=== PATIENT | female | born 1960 | race Asian ===

== ENCOUNTER 2016-08-07 09:47 | Emergency (ER) | payer BC ==
--- NOTE | 2016-08-07 11:11 | EDDOCDS ---
Physician Documentation [facility] Name: Stefani Estrada Age: 56 yrs Sex: Female : 1960 Arrival Date: 08/07/2016 Time: 09:47 Bed TR1 Private MD: NO PRIMARY PHYSICIAN, . Disposition: 08/07/16 10:53 Discharged to Home/Self Care. Impression: Nondisplaced fracture of proximal phalanx of left great toe. - Condition is Stable. - Discharge Instructions: Toe Fracture, [id number]. - Medication Reconciliation, Local Pharmacy Hours form. - Follow up: Orthopaedics, [facility]; When: Call to arrange an appointment; Reason: Further diagnostic work-up, Recheck today's complaints, Continuance of care. - Problem is new. - Symptoms are unchanged. Historical: - Allergies: no known allergies; - Home Meds: 1. none - PMHx: none; - PSHx: none; - Social history: Smoking status: Patient states was never smoker of tobacco. No barriers to communication noted, The patient speaks fluent Dominican. - : The pt / caregiver states he / she is not on anticoagulants. Home medication list is obtained from family members. - Exposure Risk Screening:: None identified. Vital Signs: 08/07 09:50 BP 143 / 83; Pulse 70; Resp 18; Temp 97.5; Pulse Ox 100% ; Weight 45.36 kg / 100 lbs; elp Height 5 ft. 0 in. (152.40 cm); 09:50 Body Mass Index 19.53 (45.36 kg, 152.40 cm) elp MDM: 10:02 Foot, Complete Ordered. EDMS 10:41 Financial registration complete. lg 10:47 [facility] [place]. Nursing Order ordered. [facility] 10:47 [facility] Payment Agreement was scanned into [employer] and attached to record. lg Signatures: Dispatcher [employer] EDMS Tanya Weber, Jeovany Reg lg Shy Gillis, Bobo Vines RN, PA PA btw Diana Maravilla RN RN ms18 The chart was reviewed and I authenticate all verbal orders and agree with the evaluation and treatment provided.Attachments: 10:47 [facility] [place] Agreement lg MTDD
--- NOTE | 2016-08-07 11:11 | EDDOCDS ---
Nurse's Notes [facility] Name: Stefani Estrada Age: 56 yrs Sex: Female : 1960 Arrival Date: 08/07/2016 Time: 09:47 Bed TR1 Private MD: NO PRIMARY PHYSICIAN, . Diagnosis: Nondisplaced fracture of proximal phalanx of left great toe Presentation: 08/07 09:53 Presenting complaint: states: that his injured her L foot approx 5 days ms18 ago and can't move her great toe, some bruising noted. Adult Sepsis Screening: The patient does not have new or worsening altered mentation. Patient's respiratory rate is less than 22. Systolic blood pressure is greater than 100. Patient has a qSOFA score of 0- Negative Sepsis Screen. Suicide/Homicide risk assessment- the patient denies having any suicidal and/or homicidal ideations and does not present with any other emotional, behavioral or mental health complaints. Status: Patient is not a automotive service advisor or dependent. Transition of care: patient was not received from another setting of care. 09:53 Acuity: KAMERON Level 4 ms18 09:53 Method Of Arrival: Walkin/Carried/Asstd ms18 Triage Assessment: 09:55 General: Appears in no apparent distress, comfortable, Behavior is appropriate for age, ms18 cooperative. Pain: Location: left foot Pain currently is 8 out of 10 on a pain scale. HIV screening NA for this visit Offered previously. Neurological: Level of Consciousness is awake, alert, obeys commands. Respiratory: No deficits noted. Derm: Skin is pink, warm & dry. Bruising that is yellow, on left first toe. Musculoskeletal: Circulation, motion, and sensation intact Range of motion intact in all extremities. No deformity noted. Historical: - Allergies: no known allergies; - Home Meds: 1. none - PMHx: none; - PSHx: none; - Social history: Smoking status: Patient states was never smoker of tobacco. No barriers to communication noted, The patient speaks fluent Pashto. - : The pt / caregiver states he / she is not on anticoagulants. Home medication list is obtained from family members. - Exposure Risk Screening:: None identified. Screenin:57 Screening information is obtained from family members. Fall risk: No risks identified. jjr Assistance ADL's: requires no assistance with activities of daily living. Abuse/DV Screen: The patient / caregiver reports he/she is: not in a situation that causes fear, pain or injury. Nutritional screening: No deficits noted. Advance Directives: There is no active DNR order. home support is adequate. Assessment: 10:56 General: Appears in no apparent distress. Musculoskeletal: Capillary refill < 3 seconds jjr in left toes Reports pain in left first toe and medial aspect of left toes. Vital Signs: 09:50 BP 143 / 83; Pulse 70; Resp 18; Temp 97.5; Pulse Ox 100% ; Weight 45.36 kg; Height 5 elp ft. 0 in. (152.40 cm); 09:50 Body Mass Index 19.53 (45.36 kg, 152.40 cm) [facility] Vitals: 09:50 Log In Time: August 07, 2016 at 09:48. [facility] ED Course: 09:49 Patient visited by Maris Freedman PCA. elp 09:49 NO PRIMARY PHYSICIAN, . is Private Physician. elp 09:49 Patient moved to Waiting elp 09:50 Patient visited by Maris Freedman PCA. elp 09:50 Patient moved to Pre RCE elp 09:55 Triage Initiated ms18 10:32 [facility] btw 10:32 Kaleb Aleman MD is Attending Physician. btw 10:32 Patient moved to Triage 1 jjr 10:40 Patient visited by Bobo Mckinley PA. btw 10:47 [facility] Payment Agreement was scanned into [employer] and attached to record. lg 10:[facility] btw 10:57 The patient / caregiver is instructed regarding the plan of care and ED course. jjr 10:57 No IV's were initiated during this patient's visit. No procedures done that require jjr assistance. 11:10 Patient moved to TR1 jjr Order Results: There are currently no results for this order. Outcome: 10:53 Discharge ordered by Provider. btw 11:10 Discharge Assessment: patient administered narcotics - no. The following High Risk jjr Discharge criteria are identified: None. Discharged to home ambulatory, with significant other. Condition: stable. Discharge instructions given to significant other, Instructed on discharge instructions, follow up and referral plans. Demonstrated understanding of instructions. No special radiology studies were completed. Property sent home with patient. 11:10 Patient left the ED. lethajr Signatures: Tanya Weber Reg Reg lg Raymond, Jessica, RN RN Bobo Henry PA PA btw Patchen, Erin, PCA PCA elp Smith, Mallory,RN RN ms18 MTDD
--- NOTE | 2016-08-07 12:13 | REP ---
Left foot series: Four views. History: Trauma. Findings: Four views of the left foot demonstrate a nondisplaced fracture of the proximal phalanx of the left foot visible on oblique radiograph. There is associated swelling. No other fracture is seen. There is diffuse osteopenia. Achilles and plantar calcaneal spurring is noted. Impression: Oblique nondisplaced fracture of the proximal phalanx of the great toe with associated swelling. Diffuse osteoporosis. Signed by Damon Whyte MD 08/07/2016 07:24 P
--- NOTE | 2016-08-09 12:11 | EDDOCDS ---
Physician Documentation [facility] Name: Stefani Estrada Age: 56 yrs Sex: Female : 1960 Arrival Date: 08/07/2016 Time: 09:47 Bed TR1 Private MD: NO PRIMARY PHYSICIAN, . Disposition: 08/07/16 10:53 Discharged to Home/Self Care. Impression: Nondisplaced fracture of proximal phalanx of left great toe. - Condition is Stable. - Discharge Instructions: Toe Fracture, [id number]. - Medication Reconciliation, Local Pharmacy Hours form. - Follow up: Orthopaedics, [facility]; When: Call to arrange an appointment; Reason: Further diagnostic work-up, Recheck today's complaints, Continuance of care. - Problem is new. - Symptoms are unchanged. Historical: - Allergies: no known allergies; - Home Meds: 1. none - PMHx: none; - PSHx: none; - Social history: Smoking status: Patient states was never smoker of tobacco. No barriers to communication noted, The patient speaks fluent Hungarian. - : The pt / caregiver states he / she is not on anticoagulants. Home medication list is obtained from family members. - Exposure Risk Screening:: None identified. Vital Signs: 08/07 09:50 BP 143 / 83; Pulse 70; Resp 18; Temp 97.5; Pulse Ox 100% ; Weight 45.36 kg / 100 lbs; elp Height 5 ft. 0 in. (152.40 cm); 09:50 Body Mass Index 19.53 (45.36 kg, 152.40 cm) elp MDM: 10:02 Foot, Complete Ordered. EDMS 10:41 Financial registration complete. lg 10:47 [facility] [place]. Nursing Order ordered. btw 10:47 [facility] Payment Agreement was scanned into [employer] and attached to record. lg 15:04 T-Sheet-- Draft Copy was scanned into [employer] and attached to record. gb Signatures: Dispatcher [employer] EDMS Isela Chen, Reg Reg gb Tanya Weber, Reg Reg lg Shy Gillis, RN RN Bobo Henry PA PA btw Diana MaravillaRN RN ms18 The chart was reviewed and I authenticate all verbal orders and agree with the evaluation and treatment provided.Attachments: 10:47 [facility] Payment Agreement lg 15:04 T-Sheet-- Draft Copy gb Chart Complete MTDD
--- NOTE | 2016-08-09 12:11 | EDDOCDS ---
Physician Documentation [facility] Name: Stefani Estrada Age: 56 yrs Sex: Female : 1960 Arrival Date: 08/07/2016 Time: 09:47 Bed TR1 Private MD: NO PRIMARY PHYSICIAN, . Disposition: 08/07/16 10:53 Discharged to Home/Self Care. Impression: Nondisplaced fracture of proximal phalanx of left great toe. - Condition is Stable. - Discharge Instructions: Toe Fracture, [id number]. - Medication Reconciliation, Local Pharmacy Hours form. - Follow up: Orthopaedics, [facility]; When: Call to arrange an appointment; Reason: Further diagnostic work-up, Recheck today's complaints, Continuance of care. - Problem is new. - Symptoms are unchanged. Historical: - Allergies: no known allergies; - Home Meds: 1. none - PMHx: none; - PSHx: none; - Social history: Smoking status: Patient states was never smoker of tobacco. No barriers to communication noted, The patient speaks fluent [place] Islander. - : The pt / caregiver states he / she is not on anticoagulants. Home medication list is obtained from family members. - Exposure Risk Screening:: None identified. Vital Signs: 08/07 09:50 BP 143 / 83; Pulse 70; Resp 18; Temp 97.5; Pulse Ox 100% ; Weight 45.36 kg / 100 lbs; elp Height 5 ft. 0 in. (152.40 cm); 09:50 Body Mass Index 19.53 (45.36 kg, 152.40 cm) elp MDM: 10:02 Foot, Complete Ordered. EDMS 10:41 Financial registration complete. lg 10:47 [facility] [place]. Nursing Order ordered. btw 10:47 [facility] Payment Agreement was scanned into [employer] and attached to record. lg 15:04 T-Sheet-- Draft Copy was scanned into [employer] and attached to record. gb Signatures: Dispatcher [employer] EDMS Isela Chen, Reg Reg gb Tanya Weber, Reg Reg lg Shy Gillis, RN RN Bobo Henry PA PA btw Diana MaravillaRN RN ms18 The chart was reviewed and I authenticate all verbal orders and agree with the evaluation and treatment provided.Attachments: 10:47 [facility] Payment Agreement lg 15:04 T-Sheet-- Draft Copy gb Chart Complete MTDD
--- NOTE | 2016-08-09 12:11 | EDDOCDS ---
Nurse's Notes [facility] Name: Stefani Estrada Age: 56 yrs Sex: Female : 1960 Arrival Date: 08/07/2016 Time: 09:47 Bed TR1 Private MD: NO PRIMARY PHYSICIAN, . Diagnosis: Nondisplaced fracture of proximal phalanx of left great toe Presentation: 08/07 09:53 Presenting complaint: states: that his injured her L foot approx 5 days ms18 ago and can't move her great toe, some bruising noted. Adult Sepsis Screening: The patient does not have new or worsening altered mentation. Patient's respiratory rate is less than 22. Systolic blood pressure is greater than 100. Patient has a qSOFA score of 0- Negative Sepsis Screen. Suicide/Homicide risk assessment- the patient denies having any suicidal and/or homicidal ideations and does not present with any other emotional, behavioral or mental health complaints. Status: Patient is not a customer service sales consultant or dependent. Transition of care: patient was not received from another setting of care. 09:53 Acuity: KAMERON Level 4 ms18 09:53 Method Of Arrival: Walkin/Carried/Asstd ms18 Triage Assessment: 09:55 General: Appears in no apparent distress, comfortable, Behavior is appropriate for age, ms18 cooperative. Pain: Location: left foot Pain currently is 8 out of 10 on a pain scale. HIV screening NA for this visit Offered previously. Neurological: Level of Consciousness is awake, alert, obeys commands. Respiratory: No deficits noted. Derm: Skin is pink, warm & dry. Bruising that is yellow, on left first toe. Musculoskeletal: Circulation, motion, and sensation intact Range of motion intact in all extremities. No deformity noted. Historical: - Allergies: no known allergies; - Home Meds: 1. none - PMHx: none; - PSHx: none; - Social history: Smoking status: Patient states was never smoker of tobacco. No barriers to communication noted, The patient speaks fluent German. - : The pt / caregiver states he / she is not on anticoagulants. Home medication list is obtained from family members. - Exposure Risk Screening:: None identified. Screenin:57 Screening information is obtained from family members. Fall risk: No risks identified. jjr Assistance ADL's: requires no assistance with activities of daily living. Abuse/DV Screen: The patient / caregiver reports he/she is: not in a situation that causes fear, pain or injury. Nutritional screening: No deficits noted. Advance Directives: There is no active DNR order. home support is adequate. Assessment: 10:56 General: Appears in no apparent distress. Musculoskeletal: Capillary refill < 3 seconds jjr in left toes Reports pain in left first toe and medial aspect of left toes. Vital Signs: 09:50 BP 143 / 83; Pulse 70; Resp 18; Temp 97.5; Pulse Ox 100% ; Weight 45.36 kg; Height 5 elp ft. 0 in. (152.40 cm); 09:50 Body Mass Index 19.53 (45.36 kg, 152.40 cm) [facility] Vitals: 09:50 Log In Time: August 07, 2016 at 09:48. [facility] ED Course: 09:49 Patient visited by Maris Freedman PCA. elp 09:49 NO PRIMARY PHYSICIAN, . is Private Physician. elp 09:49 Patient moved to Waiting elp 09:50 Patient visited by Maris Freedman PCA. elp 09:50 Patient moved to Pre RCE elp 09:55 Triage Initiated ms18 10:32 [facility]. btw 10:32 Kaleb Aleman MD is Attending Physician. btw 10:32 Patient moved to Triage 1 jjr 10:40 Patient visited by Bobo Mckinley PA. btw 10:47 [facility] Payment Agreement was scanned into [employer] and attached to record. lg 10:52 [facility] btw 10:57 The patient / caregiver is instructed regarding the plan of care and ED course. jjr 10:57 No IV's were initiated during this patient's visit. No procedures done that require jjr assistance. 11:10 Patient moved to TR1 jjr 12:36 Foot, Complete Returned. EDMS 15:04 T-Sheet-- Draft Copy was scanned into [employer] and attached to record. gb Order Results: Radiology Order: Foot, Complete Test: Foot, Complete REASON FOR EXAMINATION: Trauma; Left foot series: Four views.; ; History: Trauma.; ; Findings: Four views of the left foot demonstrate a nondisplaced fracture of the; proximal phalanx of the left foot visible on oblique radiograph. There is; associated swelling. No other fracture is seen. There is diffuse osteopenia.; Achilles and plantar calcaneal spurring is noted.; ; Impression:; ; Oblique nondisplaced fracture of the proximal phalanx of the great toe with; associated swelling. Diffuse osteoporosis.; ; ; Signed by; Damon Whyte MD 08/07/2016 07:24 P; Outcome: 10:53 Discharge ordered by Provider. btw 11:10 Discharge Assessment: patient administered narcotics - no. The following High Risk jjr Discharge criteria are identified: None. Discharged to home ambulatory, with significant other. Condition: stable. Discharge instructions given to significant other, Instructed on discharge instructions, follow up and referral plans. Demonstrated understanding of instructions. No special radiology studies were completed. Property sent home with patient. 11:10 Patient left the ED. jjr Signatures: Dispatcher [employer] EDMS Isela Chen, Reg Reg gb Tanya Weber, Reg Reg lg Shy Gillis, RN RN jjr Bobo Mckinley PA PA Maris Millard, WIRELESS WATCHER WIRELESS WATCHER Diana Nettles,RN RN ms18 Chart Complete MTDD
== END 2016-08-07 11:10 | disposition home or self-care (01) ==
LOC: M ED 09:47
DX: S92.415A Nondisplaced fracture of proximal phalanx of left great toe, initial encounter for closed fracture (principal); W22.8XXA Striking against or struck by other objects, initial encounter; Y92.019 Unspecified place in single-family (private) house as the place of occurrence of the external cause; Y93.89 Activity, other specified; Y99.8 Other external cause status

== ENCOUNTER → 2016-08-21 | Outpatient (CLI) | payer BC | LOC: M WHC 14:47 | DX: M81.0 Age-related osteoporosis without current pathological fracture (principal); Z53.8 Procedure and treatment not carried out for other reasons ==

== ENCOUNTER → 2016-11-24 | Outpatient (CLI) | payer BC ==
--- NOTE | 2016-11-26 09:00 | DEXA ---
AP SPINE L1 - L4 0.921 -2.2 -0.7 LT FEMUR TOTAL 0.787 -1.7 -0.6 RT FEMUR TOTAL 0.787 -1.8 -0.6 TOTAL BODY TOTAL OTHER DUAL FEMUR FRAX* ASSESSMENT Risk factors: Adult fracture. 10 year probability of fracture Major osteoporotic fracture 9.8 % Hip fracture 2.2 % COMMENTS: There is low bone density of the spine. There is low bone density of the right hip. There is osteoporosis of the left hip. FOLLOW-UP: Recommendation for the next bone density exam: 2 years. TRIPP
== END ==
LOC: M WHC 12:21
PROVIDERS: ATTEND Internal Medicine
DX: M81.0 Age-related osteoporosis without current pathological fracture (principal)

== ENCOUNTER → 2018-02-28 | Outpatient (REF) | payer BC, OTHER ==
[2018-02-28 11:51] LABS: AMORPHOUS SEDIMENT SMALL (NEGATIVE); APPEARANCE, URINE HAZY (CLEAR); BACTERIA, URINE AUTO 3+ (NEGATIVE); BILIRUBIN, URINE AUTO NEGATIVE (NEGATIVE); BLOOD, URINE BLOOD 1+ (NEGATIVE); COLOR, URINE YELLOW (YELLOW); GLUCOSE, URINE (UA) AUTO NEGATIVE (NEGATIVE); KETONE, URINE AUTO NEGATIVE (NEGATIVE); LEUKOCYTE ESTERASE, URINE AUTO 2+ (NEGATIVE); MUCUS, URINE SMALL (NEGATIVE); NITRITE, URINE AUTO NEGATIVE (NEGATIVE); PROTEIN, URINE AUTO NEGATIVE (NEGATIVE); RBC, URINE AUTO 6 /HPF (0-3); SPECIFIC GRAVITY URINE AUTO 1.016 (1.002-1.035); SQUAMOUS EPITHELIAL CELL UR AU 0 /HPF (0-6); UROBILINOGEN, URINE AUTO 0.2 mg/dL (0.0-2.0); WBC, URINE AUTO 37 /HPF (0-3)
[2018-02-28 12:29] LABS: FREE T4 0.98 NG/DL (0.76-1.46); THYROID STIMULATING HORMONE 0.941 uIU/ML (0.358-3.740)
[2018-02-28 12:35] LABS: ALBUMIN 4.4 GM/DL (3.2-5.2); ALKALINE PHOSPHATASE 90 U/L (45-117); ALT/SGPT 18 U/L (12-78); ANION GAP 9 MEQ/L (8-16); AST/SGOT 12 U/L (7-37); BILIRUBIN,TOTAL 0.4 MG/DL (0.2-1.0); BLOOD UREA NITROGEN 16 MG/DL (7-18); CARBON DIOXIDE LEVEL 26 MEQ/L (21-32); CHLORIDE LEVEL 110 MEQ/L (98-107); CHOLESTEROL LEVEL 210 MG/DL (<200); CHOLESTEROL RISK RATIO 3.333 (<5); CREATININE FOR GFR 0.75 MG/DL (0.55-1.30); GLOMERULAR FILTRATION RATE > 60.0 (>51); GLUCOSE, FASTING 80 MG/DL (70-100); HDL CHOLESTEROL 63 MG/DL (>40); LDL CHOLESTEROL 125.6 MG/DL (<100); NON-HDL-C 147 MG/DL; POTASSIUM SERUM 3.7 MEQ/L (3.5-5.1); SODIUM LEVEL 145 MEQ/L (136-145); TOTAL PROTEIN 8.4 GM/DL (6.4-8.2); TRIGLYCERIDES LEVEL 107 MG/DL (<150)
[2018-02-28 14:37] LABS: ESTIMATED AVERAGE GLUCOSE 120 MG/DL (60-110); HEMOGLOBIN A1c 5.8 %
== END ==
LOC: M SFHCPLAZ 09:13
DX: I10 Essential (primary) hypertension (principal); Z13.1 Encounter for screening for diabetes mellitus; Z13.220 Encounter for screening for lipoid disorders
CPT/HCPCS: 84443

== ENCOUNTER → 2018-03-14 | Outpatient (REF) | payer BC, OTHER ==
[2018-03-14 12:48] LABS: APPEARANCE, URINE CLEAR (CLEAR); BACTERIA, URINE AUTO NEGATIVE (NEGATIVE); BILIRUBIN, URINE AUTO NEGATIVE (NEGATIVE); BLOOD, URINE BLOOD NEGATIVE (NEGATIVE); COLOR, URINE STRAW (YELLOW); GLUCOSE, URINE (UA) AUTO NEGATIVE (NEGATIVE); KETONE, URINE AUTO NEGATIVE (NEGATIVE); LEUKOCYTE ESTERASE, URINE AUTO NEGATIVE (NEGATIVE); MUCUS, URINE SMALL (NEGATIVE); NITRITE, URINE AUTO NEGATIVE (NEGATIVE); PROTEIN, URINE AUTO NEGATIVE (NEGATIVE); RBC, URINE AUTO 1 /HPF (0-3); SPECIFIC GRAVITY URINE AUTO 1.008 (1.002-1.035); SQUAMOUS EPITHELIAL CELL UR AU 0 /HPF (0-6); UROBILINOGEN, URINE AUTO 0.2 mg/dL (0.0-2.0); WBC, URINE AUTO 1 /HPF (0-3)
== END ==
LOC: M SFHCPLAZ 11:44
DX: N30.01 Acute cystitis with hematuria (principal)
CPT/HCPCS: 81001

== ENCOUNTER → 2018-04-14 | Outpatient (CLI) | payer BC, OTHER | LOC: M LRY 16:06 | DX: R05 Cough (principal); R06.2 Wheezing | CPT/HCPCS: 71046 ==

== ENCOUNTER → 2018-04-25 | Outpatient (REF) | payer BC, OTHER ==
[2018-04-25 15:50] LABS: APPEARANCE, URINE CLEAR (CLEAR); BACTERIA, URINE AUTO NEGATIVE (NEGATIVE); BILIRUBIN, URINE AUTO NEGATIVE (NEGATIVE); BLOOD, URINE BLOOD 1+ (NEGATIVE); COLOR, URINE STRAW (YELLOW); GLUCOSE, URINE (UA) AUTO NEGATIVE (NEGATIVE); KETONE, URINE AUTO NEGATIVE (NEGATIVE); LEUKOCYTE ESTERASE, URINE AUTO NEGATIVE (NEGATIVE); NITRITE, URINE AUTO NEGATIVE (NEGATIVE); PROTEIN, URINE AUTO NEGATIVE (NEGATIVE); RBC, URINE AUTO 2 /HPF (0-3); SPECIFIC GRAVITY URINE AUTO 1.006 (1.002-1.035); SQUAMOUS EPITHELIAL CELL UR AU 0 /HPF (0-6); UROBILINOGEN, URINE AUTO 0.2 mg/dL (0.0-2.0); WBC, URINE AUTO 1 /HPF (0-3)
== END ==
LOC: M SFHCPLAZ 15:20
DX: R31.29 Other microscopic hematuria (principal)
CPT/HCPCS: 81001

== ENCOUNTER → 2018-06-13 | Outpatient (REF) | payer OTHER ==
[2018-06-17 14:13] LABS: HPV HYBRID CAPTURE II Negative (Negative)
== END ==
LOC: M SFHCWAGY 09:39
DX: Z12.4 Encounter for screening for malignant neoplasm of cervix (principal)

== ENCOUNTER → 2018-06-13 | Outpatient (CLI) | payer OTHER | LOC: M WHC 09:09 | DX: Z12.31 Encounter for screening mammogram for malignant neoplasm of breast (principal) | CPT/HCPCS: 77067 ==

== ENCOUNTER → 2018-06-23 | Outpatient (CLI) | payer OTHER ==
[2018-06-23 09:03] LABS: BASO % 0.4 % (0.0-1.0); EOS # 0.1 10^3/uL (0.0-0.50); HEMATOCRIT 38.6 % (36.0-47.0); HEMOGLOBIN 12.6 g/dl (12.0-15.5); LYMPH # 2.8 10^3/uL (1.5-4.5); MEAN CORPUSCULAR HEMOGLOBIN 30.2 pg (27.0-33.0); MEAN CORPUSCULAR HGB CONC 32.6 g/dl (32.0-36.5); MEAN CORPUSCULAR VOLUME 92.6 fl (80.0-96.0); MONO # 0.5 10^3/uL (0.0-0.8); NEUTROPHILS # 3.4 10^3/uL (1.8-7.7); NEUTROPHILS % 50.3 % (36.0-66.0); PLATELET COUNT, AUTOMATED 314 10^3/uL (150-450); RED BLOOD COUNT 4.17 10^6/uL (4.00-5.40); WHITE BLOOD COUNT 6.7 10^3/uL (4.0-10.0)
[2018-06-23 09:24] LABS: ERYTHROCYTE SEDIMENTATION RATE 14 mm/hr (0-30)
--- NOTE | 2018-06-24 02:05 | REP ---
Clinical: Lower back pain. Technique: AP, lateral, bilateral oblique and coned-down views of the lumbosacral spine. Findings: Lordosis is maintained and there is no evidence for acute fracture / compression injury or subluxation. Moderate to early advanced multilevel degenerative disc osteophyte complexes are appreciated primarily involving the L4-5 and L5-S1 levels. Findings include endplate sclerosis, early osteophyte formation/spurring, and hypertrophic facet changes. No obvious spondylolysis or spondylolisthesis. Impression: Moderate/early advanced multilevel degenerative changes. Electronically Signed by Vaughn Marcelino MD 06/24/2018 01:57 A
== END ==
LOC: M LAB 08:29
PROVIDERS: ATTEND Student in an Organized Health Care Education/Training Program
DX: M51.37 Other intervertebral disc degeneration, lumbosacral region (principal); M54.5 Low back pain

== ENCOUNTER → 2019-01-31 | Outpatient (CLI) | payer OTHER ==
--- NOTE | 2019-01-31 15:28 | REP ---
Clinical: Abdominal pain. Technique: Single supine view of the abdomen and pelvis. Findings: Bowel gas pattern is nonspecific and without obstruction or perforation. Fecal stasis cannot be excluded. No organomegaly. Skeletal structures demonstrate age-related degenerative changes. Impression: Nonspecific bowel gas pattern. Electronically Signed by Vaughn Marcelino MD 01/31/2019 03:19 P
--- NOTE | 2019-01-31 15:29 | REP ---
Clinical: Mid chest pain . Comparison: 04/14/2018 . Technique: PA and lateral. Findings: The mediastinum and cardiac silhouette are normal. The lung crump are clear and without acute consolidation, effusion, or pneumothorax. The skeletal structures are intact and normal. Impression: 1. No acute cardiopulmonary process. Electronically Signed by Vaughn Marcelino MD 01/31/2019 03:21 P
== END ==
LOC: M LRY 15:00
PROVIDERS: ATTEND Nurse Practitioner Family
DX: R10.13 Epigastric pain (principal); R07.9 Chest pain, unspecified

== ENCOUNTER 2020-06-19 11:44 | Emergency (ER) | payer OTHER ==
[~2020-06-19] VITALS: Ht 144.8 cm; Wt 57.7 kg
[2020-06-19] MEDS ORDERED: NEXI20CA33 PO (12:28)
[2020-06-19 13:08] LABS: BASO % 0.3 % (0.0-1.0); EOS # 0.1 10^3/uL (0.0-0.5); EOS % 1.3 % (0.0-3.0); HEMATOCRIT 42.3 % (36.0-47.0); LYMPH # 2.2 10^3/uL (1.5-5.0); LYMPH % 36.9 % (24.0-44.0); MEAN CORPUSCULAR HEMOGLOBIN 28.8 pg (27.0-33.0); MEAN CORPUSCULAR HGB CONC 30.7 g/dl (32.0-36.5); MEAN CORPUSCULAR VOLUME 93.6 fl (80.0-96.0); MONO # 0.4 10^3/uL (0.0-0.8); MONO % 5.9 % (0.0-5.0); NEUTROPHILS # 3.3 10^3/uL (1.5-8.5); NEUTROPHILS % 55.4 % (36.0-66.0); PLATELET COUNT, AUTOMATED 321 10^3/uL (150-450); RED BLOOD COUNT 4.52 10^6/uL (4.00-5.40)
[2020-06-19 13:45] LABS: ALBUMIN 4.3 GM/DL (3.2-5.2); ALT/SGPT 25 U/L (12-78); BILIRUBIN,DIRECT 0.1 MG/DL (0.0-0.2); BILIRUBIN,TOTAL 0.4 MG/DL (0.2-1.0); BLOOD UREA NITROGEN 14 MG/DL (7-18); CARBON DIOXIDE LEVEL 27 MEQ/L (21-32); CHLORIDE LEVEL 106 MEQ/L (98-107); CREATININE FOR GFR 0.67 MG/DL (0.55-1.30); GLOMERULAR FILTRATION RATE > 60.0 (>45); GLUCOSE, FASTING 76 MG/DL (70-100); LIPASE 121 U/L (73-393); POTASSIUM SERUM 3.9 MEQ/L (3.5-5.1); SODIUM LEVEL 142 MEQ/L (136-145); TOTAL PROTEIN 8.2 GM/DL (6.4-8.2)
--- NOTE | 2020-06-19 15:10 | REP ---
INDICATION: lower pelvic pain, hx of fibroids. Evaluate ovaries. COMPARISON: None. TECHNIQUE: Transabdominal and transvaginal scanning were performed. FINDINGS: Uterine dimensions are normal at 5.6 x 3.0 x 3.6 cm. Endometrial echo is 0.3 cm thick and centrally placed. No free fluid is seen in the cul-de-sac. Visualized bladder slaughter are smooth. The uterus is retroverted. There is a 1.7 x 1.1 x 1.5 cm fundal fibroid in the uterus. No other focal uterine mass is seen. Neither ovary could be observed transabdominally or transvaginally. Visualized bladder slaughter are smooth. No free fluid or adnexal mass or cyst is seen.. IMPRESSION: Retroverted uterus. 1.7 cm fundal fibroid. Neither ovary could be directly visualized. No adnexal mass, cyst, or free fluid seen.. <Electronically signed by Eagle Whyte > 06/19/20 [id number]
[2020-06-19] MEDS ORDERED: KETOROLAC 30 MG/ML 1ML VIAL IV ONE (15:45)
[2020-06-19 16:03] VITALS: BP 169/88
[2020-06-19 16:22] LABS: CHLAMYDIA DNA AMPLIFICATION NEGATIVE (NEGATIVE); GC DNA AMPLIFICATION NEGATIVE (NEGATIVE)
== END 2020-06-19 16:05 | disposition home or self-care (01) ==
LOC: M ED 11:44
DX: D25.9 Leiomyoma of uterus, unspecified (principal); N93.9 Abnormal uterine and vaginal bleeding, unspecified; K21.9 Gastro-esophageal reflux disease without esophagitis; Z79.899 Other long term (current) drug therapy
CPT/HCPCS: 76830; 76856; 80048; 80076; 81001; 83690; 85025; 87210; 87661; 96374; 99284; J1885

== ENCOUNTER 2020-07-02 08:41 | Emergency (ER) | payer OTHER ==
[~2020-07-02] VITALS: Ht 152.4 cm; Wt 50.2 kg
[~2020-07-02 08:41] MED LIST: NEXI20CA33 PO
[2020-07-02 10:56] LABS: BASO % 0.2 % (0.0-1.0); EOS # 0.1 10^3/uL (0.0-0.5); EOS % 1.4 % (0.0-3.0); HEMATOCRIT 38.3 % (36.0-47.0); HEMOGLOBIN 11.9 g/dl (12.0-15.5); LYMPH % 45.7 % (24.0-44.0); MEAN CORPUSCULAR HGB CONC 31.1 g/dl (32.0-36.5); MEAN CORPUSCULAR VOLUME 93.2 fl (80.0-96.0); MONO # 0.3 10^3/uL (0.0-0.8); MONO % 6.6 % (0.0-5.0); NEUTROPHILS % 45.9 % (36.0-66.0); PLATELET COUNT, AUTOMATED 287 10^3/uL (150-450); RED BLOOD COUNT 4.11 10^6/uL (4.00-5.40); WHITE BLOOD COUNT 4.4 10^3/uL (4.0-10.0)
[2020-07-02 11:29] LABS: ALBUMIN 3.9 GM/DL (3.2-5.2); ALT/SGPT 18 U/L (12-78); BILIRUBIN,DIRECT 0.1 MG/DL (0.0-0.2); BILIRUBIN,TOTAL 0.3 MG/DL (0.2-1.0); BLOOD UREA NITROGEN 15 MG/DL (7-18); CALCIUM LEVEL 8.6 MG/DL (8.8-10.2); CARBON DIOXIDE LEVEL 28 MEQ/L (21-32); CHLORIDE LEVEL 110 MEQ/L (98-107); CREATININE FOR GFR 0.62 MG/DL (0.55-1.30); GLOMERULAR FILTRATION RATE > 60.0 (>45); GLUCOSE, FASTING 75 MG/DL (70-100); LIPASE 109 U/L (73-393); POTASSIUM SERUM 3.7 MEQ/L (3.5-5.1); SODIUM LEVEL 144 MEQ/L (136-145); TOTAL PROTEIN 7.3 GM/DL (6.4-8.2)
--- NOTE | 2020-07-02 13:29 | REP ---
INDICATION: pelvic pain COMPARISON: 06/19/2020 TECHNIQUE: Transabdominal pelvic ultrasound followed by transvaginal examination for better evaluation of the endometrium and adnexa with color Doppler evaluation of the ovaries. FINDINGS: Bladder is under distended and measures 4.4 x 2.1 x 8.1 cm. Heterogeneous retroverted uterus measures 5.4 x 1.9 x 3.5 cm. The endometrial complex measures 1.7 mm thickness. Fundal fibroid measures 1.5 x 1.2 x 1.6 cm and anterior subserosal fibroid measures 1.6 x 1.2 x 1.2 cm Ovaries are not visualized. No pelvic fluid or adnexal mass lesion. IMPRESSION: Heterogeneous uterus with myomatous changes noted. No pelvic free fluid. <Electronically signed by Vaughn Marcelino > 07/02/20 [id number]
[2020-07-02 13:37] LABS: CHLAMYDIA DNA AMPLIFICATION NEGATIVE (NEGATIVE); GC DNA AMPLIFICATION NEGATIVE (NEGATIVE)
[2020-07-02] MEDS ORDERED: FLAG500T PO (14:19)
[2020-07-02] MEDS ORDERED: MACR100C43 PO (14:19)
[2020-07-02 14:54] VITALS: BP 162/94
--- NOTE | 2020-07-02 17:44 | ED PDOC ---
Post-Departure Follow-Up radiology rpeort faxed to Larissa Kimbrough MD Jul 02, 2020 17:43
== END 2020-07-02 14:57 | disposition home or self-care (01) ==
LOC: M ED 08:41
DX: N39.0 Urinary tract infection, site not specified (principal); B96.89 Other specified bacterial agents as the cause of diseases classified elsewhere; D25.9 Leiomyoma of uterus, unspecified; K21.9 Gastro-esophageal reflux disease without esophagitis; Z79.899 Other long term (current) drug therapy

== ENCOUNTER → 2021-04-02 | Outpatient (CLI) | payer OTHER ==
[~2021-04-02] MED LIST changes: +FLAG500T PO; +MACR100C43 PO
--- NOTE | 2021-04-05 10:19 | ECGEPIP ---
[facility] Test Date: 2021-04-02 Pat Name: LIZETT DUPREE Department: Room: - Gender: Female College Hire: yoly : 1960 Requested By: Nicky FARNSWORTH Order Number: [id number] Reading MD: Jaspreet Mcdonald Measurements Intervals [place] Rate: 65 P: 66 WA: 162 QRS: 48 QRSD: 70 T: 41 QT: 442 QTc: 459 Interpretive Statements Normal sinus rhythm Normal ECG. No significant change compared with 03/04/2016. Electronically Signed on 04-05-2021 10:19:00 EDT by Jaspreet Mcdonald
== END ==
LOC: M EKG 14:32
PROVIDERS: ATTEND Nurse Practitioner Family
DX: R00.2 Palpitations (principal)

== ENCOUNTER 2021-06-10 08:57 | Emergency (ER) | payer OTHER ==
[~2021-06-10] VITALS: Ht 160 cm; Wt 50.6 kg
--- OUTSIDE RECORDS SUMMARY | 2021-06-10 09:04 | CCD ---
Author Author [facility] Organization [facility] Address Unknown Phone Unavailable Care Team Providers Care Soa Integration Developer Name Role Phone JohnathonGarry laguerreMechelle Unavailable PROBLEMS Type Condition ICD9-CM Code NUG49-YU Code Onset Dates Condition S tatus W/U Status Risk SNOMED Code Notes Problem Constipation K59.00 Active confirmed 3003552 8 Problem Supraspinatus (muscle) (tendon) sprain S46.819A Active confirmed 10185770 Problem Sleep disorder G47.9 Active confirmed 88599 005 Problem History of anemia Z86.2 Active confirmed 27 6970816 Problem Suspected sleep apnea G47.30 Active confirmed 74730993 Problem Lumbar spondylosis M47.816 Active confirmed 474268251 Problem Osteoporosis M81.0 Active confirmed 4109601 6 Problem Gastroesophageal reflux disease, esophagitis pre sence not specified K21.9 Active confirmed 415337147 Problem Screening for diabetes mellitus Z13.1 Active confi rmed 700475114 Problem Sleep difficulties G47.9 Active confirmed 3 00072956 Problem Tension headache G44.209 Active confirmed 39 7792090 Problem Essential hypertension I10 Active confirmed 14693235 Problem Atelectasis J98.11 Active confirmed 47082162 ALLERGIES Allergen (clinical drug ingredient) Drug/Non Drug Allergy do cumented on EMR Reaction Allergy Type Onset Date Status shrimp, seafood itching Non Drug Allergy Act marlene ENCOUNTERS from 1960 to 2021-05-22 Encounter Location Date Provider Diagnosis [facility] [address] [facility] [phone] [place] [address] May, Mechelle Cholandigham IMMUNIZATIONS Vaccine Route Administration Date Status Influenza 18 yrs & older Flublok IM Intramuscular Apr 25, 2018 Administered Hepatitis A & B 1mL Twinrix IM Intramuscular Aug 21, 2016 Adm inistered Hepatitis A & B 1mL Twinrix IM Intramuscular Apr 30, 2016 Adm inistered TDAP 0.5mL (Boostrix) IM Intramuscular Apr 01, 2016 Administe red Influenza 6mo & up Fluzone IM Intramuscular Apr 01, 2016 Admi nistered SOCIAL HISTORY Tobacco Use: Social History Observation Description Date Details (start date - stop date) Never Smoker Sex Assigned At : Social History Observation Description Sex Assigned At Unknown Audit Question Answer Notes Total Score: 0 Interpretation: Alcohol Education Yazidism: Question Answer Notes Yazidism No samaritan beliefs that would impact health care. Sexual Hx: Question Answer Notes Had sex in the last 12 months (vaginal, oral, or anal)? Yes with Men only Use protection? No Drug and Alcohol Question Answer Notes Total Score: 0 Interpretation: No problems reported Alcohol Screening: Question Answer Notes Did you have a drink containing alcohol in the past year? No Points 0 Interpretation Negative Tobacco Use: Question Answer Notes Are you a: never smoker never smoker REASON FOR REFERRAL No Information VITAL SIGNS No information MEDICATIONS Medication SIG (Take, Route, Frequency, Duration) Notes Start Da te End Date Status Zantac 150 MG 1 tablet at bedtime Orally Once a day for 30 day (s) Feb, Active PROCEDURES No Information RESULTS No Results REASON FOR VISIT APPT MEDICAL (GENERAL) HISTORY Type Description Date Medical History OA Medical History Gastric ulcer Medical History ASCVD: 4.2% (02/28/18) Surgical History Lipoma removal on lower back Surgical History Normal colonoscopy 03/2016 Hospitalization History none Goals Section No Information Health Concerns No Information MEDICAL EQUIPMENT No Information MENTAL STATUS No Information FUNCTIONAL STATUS No Information ASSESSMENTS No Information PLAN OF TREATMENT Medication Medication Name Sig Start Date Stop Date Zantac 150 MG 1 tablet at bedtime Orally Once a day for 30 day (s) Feb, Insurance Providers Payer Name Payer Address Payer Phone Insured Name Patient Relati onship to Insured Coverage Start Date Coverage End Date [facility] CORPORATE CLAIMS DEPT [address] [facility] [phone] ANOOP DUPREE self
--- OUTSIDE RECORDS SUMMARY | 2021-06-10 09:04 | CCD ---
Author Author [facility] Organization [facility] Address Unknown Phone Unavailable Care Team Providers Care Information Technology Intern Name Role Phone MCELHERAN, NASEEM PA Unavailable Unavailable MCELHERAN, NASEEM PA Unavailable Unavailable MCELHERAN, NASEEM PA Unavailable Unavailable MCELHERAN, NASEEM PA Unavailable Unavailable MCELHERAN, NASEEM PA Unavailable Unavailable MCELHERAN, NASEEM PA Unavailable Unavailable MCELHERAN, NASEEM PA Unavailable Unavailable MCELHERAN, NASEEM PA Unavailable Unavailable MCELHERAN, NASEEM PA Unavailable Unavailable MCELHERAN, NASEEM PA Unavailable Unavailable MCELHERAN, NASEEM PA Unavailable Unavailable MCELHERAN, NASEEM PA Unavailable Unavailable MCELHERAN, NASEEM PA Unavailable Unavailable MCELHERAN, NASEEM PA Unavailable Unavailable MCELHERAN, NASEEM PA Unavailable Unavailable MCELHERAN, NASEEM PA Unavailable Unavailable MCELHERAN, NASEEM PA Unavailable Unavailable MCELHERAN, NASEEM PA Unavailable Unavailable MCELHERAN, NASEEM PA Unavailable Unavailable MCELHERAN, NASEEM PA Unavailable Unavailable MCELHERAN, NASEEM PA Unavailable Unavailable MCELHERAN, NASEEM PA Unavailable Unavailable MCELHERAN, NASEEM PA Unavailable Unavailable MCELHERAN, NASEEM PA Unavailable Unavailable MCELHERAN, NASEEM PA Unavailable Unavailable MCELHERAN, NASEEM PA Unavailable Unavailable MCELHERAN, NASEEM PA Unavailable Unavailable MCELHERAN, NASEEM PA Unavailable Unavailable MCELHERAN, NASEEM PA Unavailable Unavailable Re-disclosure Warning The records that you are about to access may contain information from federally-assisted alcohol or drug abuse programs. If such information is present, then the following federally mandated warning applies: This information has been disclosed to you from records protected by federal confidentiality rules (42 CFR part 2). The federal rules prohibit you from making any further disclosure of this information unless further disclosure is expressly permitted by the written consent of the person to whom it pertains or as otherwise permitted by 42 CFR part 2. A general authorization for the release of medical or other information is NOT sufficient for this purpose. The Federal rules restrict any use of the information to criminally investigate or prosecute any alcohol or drug abuse patient.The records that you are about to access may contain highly sensitive health information, the redisclosure of which is protected by Article 27-F of the [facility] Public Health law. If you continue you may have access to information: Regarding HIV / AIDS; Provided by facilities licensed or operated by the [facility] Office of Mental Health; or Provided by the [facility] Office for People With Developmental Disabilities. If such information is present, then the following [facility] mandated warning applies: This information has been disclosed to you from confidential records which are protected by state law. State law prohibits you from making any further disclosure of this information without the specific written consent of the person to whom it pertains, or as otherwise permitted by law. Any unauthorized further disclosure in violation of state law may result in a fine or group home sentence or both. A general authorization for the release of medical or other information is NOT sufficient authorization for further disc losure. Family History Family Member Name Family Member Gender Family Member Status Date o f Status Description Data Source(s) Unknown Male Problem [facility] ([facility] ) Unknown Unknown Problem [facility] ([facility] ) Encounters Encounter Providers Location Date Indications Data Source(s ) Unknown [address] [facility] [place] [address] 05/22/2021 12:00:00 AM EST eCW1 ([facility]) Unknown [address] [facility] [place] [address] 05/22/2021 12:00:00 AM EST eCW1 ([facility]) OFFICE OUTPATIENT NEW 60 MINUTES Attender: NASEEM GOLDBERG Physical Therapy 05/08/2021 10:30:00 AM EDT MEDENT ([facility]) Immunizations Vaccine Date Status Description Data Source(s) COVID-19 VACCINE Moderna 01/02/2021 12:00:00 AM EDT completed [facility] Vaccine Series Complete: YESThis Data wa s Submitted to [facility] Via [employer]. COVID-19 VACCINE Moderna 12/05/2020 12:00:00 AM EDT completed [facility] Vaccine Series Complete: NOThis Data was Submitted to [facility] Via [employer]. Medications No Information Insurance Providers Payer name Policy type / Coverage type Policy ID Covered democrat ID Covered democrat's relationship to ma Policy Ma [place] Information [place] Essential [id number] Self Essential [place] [facility] [place] O [id number] S [id number] ANSI-Commercial [id number] ANSI-Commercial [id number] ANSI-Commercial [id number] ANSI-Commercial [id number] ANSI-Commercial [id number] ANSI-Commercial [id number] ANSI-Commercial [id number] ANSI-Commercial [id number] [place] [id number] SP [id number] O BLUE [id number] SP [id number] ANSI-Commercial [id number] ANSI-Commercial [id number] ANSI-Commercial [id number] ANSI-Commercial [id number] ANSI-Commercial [id number] ANSI-Commercial [id number] ANSI-Commercial [id number] ANSI-Commercial [id number] ANSI-Commercial [id number] ANSI-Commercial [id number] ANSI-Commercial [id number] ANSI-Commercial [id number] ANSI-Commercial [id number] HMO BLUE [id number] SP [id number] [employer] [place] PPO 302/307 [id number] SP [id number] [employer] BCBS Health Maintenance Organization (HMO) [id number] Self [place] [id number] SP [id number] MEDICAID [id number] SP [id number] Problems, Conditions, and Diagnoses No Information Surgeries/Procedures Procedure Description Date Indications Data Source(s) RADIOLOGIC EXAM KNEE COMPLETE 4/MORE VIEWS 05/08/2021 12:00:00 AM EDT MED[facility] ([facility] ) OFFICE OUTPATIENT NEW 60 MINUTES 05/08/2021 12:00:00 A M EDT [facility] ([facility] ) RADIOLOGIC EXAM KNEE COMPLETE 4/MORE VIEWS 05/08/2021 12:00:00 AM EDT [facility] ([facility] ) RADEX ELBOW COMPLETE MINIMUM 3 VIEWS 05/08/2021 12:00: 00 AM EDT [facility] ([facility] ) X-Ray Spine Lumbosacral Complete Inc Bending Views Min Of 6 05/08/2021 12:00:00 AM EDT [facility] ([facility] ) RADEX SPINE CRV COMPL W/OBLQ&FLEX&/XTN STDS 05/08/2021 12:00:00 AM EDT [facility] ([facility] ) Results No Information Social History No Information Vital Signs ID Date Data Source UNK Name Value Range Interpretation Code Description Data Source(s) Body mass index (BMI) [Ratio] 20.7 kg/m2 20.7 k g/m2 MEDENT ([facility]) Body weight 106.00 [lb_av] 106.00 [lb_av] MEDEN T ([facility]) Body height 60 [in_i] 60 [in_i] MEDENT ([facility]) 5'0" Body temperature 97.5 [degF] 97.5 [degF] MEDENT ([facility])
--- OUTSIDE RECORDS SUMMARY | 2021-06-10 09:04 | CCD | Continuity of Care Document ---
Author Author [facility] Organization Unknown Address [address] [place] [address], [address] [address] Phone [phone] Care Team Providers Care Phlebotomy Tech Name Role Phone Larissa Gray MD AUTM [phone] Alice Zelaya DO AUTM [phone] Problems Description No Information Available Social History Type Date Description Comments Sex Unknown ETOH Use Denies alcohol use Tobacco Use Start: Unknown Denies Smoking Allergies and adverse reactions Description No Known Drug Allergies Medications Description No Active Medications Immunizations Description No Information Available Vital Signs Date Vital Result Comment 05/08/2021 11:05am Body Temperature 97.5 F Height 60 inches 5'0" Weight 106.00 lb BMI (Body Mass Index) 20.7 kg/m2 08/10/2016 11:26am Body Temperature 97.9 F Height 60 inches 5'0" Weight 109.00 lb BMI (Body Mass Index) 21.3 kg/m2 Results Description No Information Available Procedures Date Code Description Status 05/08/2021 32606 Office/Outpatient New High MDM 6 0-74 Minutes Completed 05/08/2021 29463 X-Ray Knee Complete W/Obliques & Tunnel And/Or Standing Views Completed 05/08/2021 34619 X-Ray Knee Complete W/Obliques & Tunnel And/Or Standing Views Completed 05/08/2021 67463 X-Ray Elbow Complete Completed 05/08/2021 01913 X-Ray Spine Lumbosacral Complete Inc Bending Views Min Of 6 Completed 05/08/2021 80648 X-Ray Spine Cervical 6 Or More V iews Completed Medical Devices Description No Information Available Encounters Type Date Location Provider Dx Diagnosis Office Visit 05/08/2021 10:30a [place] Lavon Soliz, P.A. M77.12 Lateral epicondylitis, left elbow M50.30 Other cervical disc degenera tion, unsp cervical region M51.36 Other intervertebral disc de generation, lumbar region M17.0 Bilateral primary osteoarthr itis of knee Assessments Date Code Description Provider 05/08/2021 M77.12 Lateral epicondylitis, left elbo w Lavon Soliz, P.A. 05/08/2021 M50.30 Other cervical disc degeneration , unspecified cervical region Lavon Soliz, P.A. 05/08/2021 M51.36 Other intervertebral disc degene ration, lumbar region Lavon Soliz, P.A. 05/08/2021 M17.0 Bilateral primary osteoarthritis of knee Lavon Soliz, P.A. Plan of Treatment 05/08/2021 - Lavon Soliz, P.A.* M77.12 Lateral epicondylitis, left elbow * M50.30 Other cervical disc degeneration, unspecified cervical region* New Xrays:* MRI C-Spine, Ordered: 05/08/21 * Follow up:* f/u after Cervical MRI for results with [facility] * M51.36 Other intervertebral disc degeneration, lumbar region * M17.0 Bilateral primary osteoarthritis of knee Functional Status Description No Information Available Mental Status Description No Information Available Referrals Description No Information Available
--- OUTSIDE RECORDS SUMMARY | 2021-06-10 09:04 | CCD ---
Author Author [facility] Organization [facility] Address Unknown Phone Unavailable Care Team Providers Care Contact Center Engineer Name Role Phone JohnathonGarry laguerreMechelle Unavailable PROBLEMS Type Condition ICD9-CM Code KHU03-UZ Code Onset Dates Condition S tatus W/U Status Risk SNOMED Code Notes Problem Constipation K59.00 Active confirmed 5191661 8 Problem Supraspinatus (muscle) (tendon) sprain S46.819A Active confirmed 38728265 Problem Sleep disorder G47.9 Active confirmed 16442 005 Problem History of anemia Z86.2 Active confirmed 27 3969201 Problem Suspected sleep apnea G47.30 Active confirmed 57491388 Problem Lumbar spondylosis M47.816 Active confirmed 981881570 Problem Osteoporosis M81.0 Active confirmed 9197196 6 Problem Gastroesophageal reflux disease, esophagitis pre sence not specified K21.9 Active confirmed 871030334 Problem Screening for diabetes mellitus Z13.1 Active confi rmed 316984515 Problem Sleep difficulties G47.9 Active confirmed 3 45572617 Problem Tension headache G44.209 Active confirmed 39 2275877 Problem Essential hypertension I10 Active confirmed 47590008 Problem Atelectasis J98.11 Active confirmed 74977187 ALLERGIES Allergen (clinical drug ingredient) Drug/Non Drug Allergy do cumented on EMR Reaction Allergy Type Onset Date Status shrimp, seafood itching Non Drug Allergy Act marlene ENCOUNTERS from 1960 to 2021-05-22 Encounter Location Date Provider Diagnosis [facility] [address] [facility] [phone] [place] [address] May, Mechelle Cholandigham IMMUNIZATIONS Vaccine Route Administration [...] Notes Total Score: 0 Interpretation: Alcohol Education Evangelical: Question Answer Notes Evangelical No synagogue beliefs that would impact health care. Sexual [...] Insured Coverage Start Date Coverage End Date [facility] CORPORATE CLAIMS [address]PT [address] [facility] [phone] ANOOP DUPREE self
--- OUTSIDE RECORDS SUMMARY | 2021-06-10 09:04 | CCD | Continuity of Care Document ---
Author Author [facility] Organization Unknown Address [address] [place] [address] Phone [phone] Care Team Providers Care Facsimile Operator Name Role Phone Larissa Gray MD AUTM [phone] Alice Zelaya DO AUTM [phone] Problems Description No Information Available Social History [...] Available Procedures Date Code Description Status 05/08/2021 56991 Office/Outpatient New High MDM 6 0-74 Minutes Completed 05/08/2021 02579 X-Ray Knee Complete W/Obliques & Tunnel And/Or Standing Views Completed 05/08/2021 59825 X-Ray Elbow Complete Completed 05/08/2021 28186 X-Ray Spine Lumbosacral Complete Inc Bending Views Min Of 6 Completed 05/08/2021 33434 X-Ray Spine Cervical 6 Or More V iews Completed Medical Devices Description No Information Available Encounters Type Date Location Provider Dx Diagnosis Office Visit 05/08/2021 10:30a [place] Lavon K. Mcelheran, P.A. M77.12 Lateral epicondylitis, left elbow M50.30 Other cervical disc degenera tion, unsp cervical region M51.36 Other intervertebral disc de generation, lumbar region M17.0 Bilateral primary osteoarthr itis of knee Assessments Date Code Description Provider 05/08/2021 M77.12 Lateral epicondylitis, left elbo w Ivett BlairAVi 05/08/2021 M50.30 Other cervical disc degeneration , unspecified cervical region De Blair 05/08/2021 M51.36 Other intervertebral disc degene ration, lumbar region Ivett BlairAVi 05/08/2021 M17.0 Bilateral primary osteoarthritis of knee De Blair Plan of Treatment 05/08/2021 - Joyce Blair.* M77.12 Lateral epicondylitis, left elbow * M50.30 Other cervical disc degeneration, unspecified cervical region* New Xrays:* MRI C-Spine, Ordered: 05/08/21 * Follow up:* f/u after Cervical MRI for results with [facility] * M51.36 Other intervertebral disc degeneration, lumbar region * M17.0 Bilateral primary osteoarthritis of knee Functional Status Description No Information Available Mental Status Description No Information Available Referrals Refer to Reason for Referral Status Appt Date Lavon Soliz PA PT ALLOWED EVAL THEN NEEDS AUTH TO PT DEPT. NT Created [address] [place] [address] [place] [address] [phone]
--- OUTSIDE RECORDS SUMMARY | 2021-06-10 12:33 | CCD ---
Author Author [facility] Organization [facility] Address Unknown Phone Unavailable Care Team Providers Care Cop Examiner Name Role Phone MCELHERAN, NASEEM PA Unavailable [...] Unavailable Unavailable MCELHERAN, NASEEM PA Unavailable Unavailable MCELAN, NASEEM PA Unavailable Unavailable MCELHERAN, NASEEM PA [...] is protected by Article 27-F of the [facility] Public Health law. If you continue you may have access to information: Regarding HIV / AIDS; Provided by facilities licensed or operated by the [facility] Office of Mental Health; or Provided by the [facility] Office for People With Developmental Disabilities. If such information is present, then the following [facility] mandated warning applies: This information has been [...] law may result in a fine or fci sentence or both. A general authorization for the release of medical or other information is NOT sufficient authorization for further disc losure. Family History Family Member Name Family Member Gender Family Member Status Date o f Status Description Data Source(s) Unknown Male Problem [facility] ([facility]) Unknown Unknown Problem [facility] ([facility], ) Encounters Encounter Providers Location Date Indications Data Source(s ) Unknown [address] [facility] [address] 05/22/2021 12:00:00 AM EST eCW1 ([facility]) Unknown [address] [facility] [address] 05/22/2021 12:00:00 AM EST eCW1 ([facility]) OFFICE OUTPATIENT NEW 60 MINUTES Attender: NASEEM GOLDBERG Physical Therapy 05/08/2021 10:30:00 AM EDT [facility]) Immunizations Vaccine Date Status Description Data Source(s) COVID-19 VACCINE Moderna 01/02/2021 12:00:00 AM EDT completed [facility] Vaccine Series Complete: YESThis Data wa s Submitted to [facility] Via [employer]. COVID-19 VACCINE Moderna 12/05/2020 12:00:00 AM EDT completed [facility] Vaccine Series Complete: NOThis Data was Submitted to [facility] Via [employer]. Medications No Information Insurance Providers Payer name Policy type / Coverage type Policy ID Covered republican ID Covered republican's relationship to ma Policy Ma [place] Information [place]ential [id number] Self Essential [facility] O [id number] S [id number] ANSI-Commercial [id number] ANSI-Commercial [id number] ANSI-Commercial [id number] ANSI-Commercial [id number] ANSI-Commercial [id number] ANSI-Commercial [id number] ANSI-Commercial [id number] ANSI-Commercial [id number] [place] [id number] SP [id number] HMO BLUE [id number] SP [id number] ANSI-Commercial [id number] ANSI-Commercial [id number] ANSI-Commercial [id number] ANSI-Commercial [id number] ANSI-Commercial [id number] ANSI-Commercial [id number] ANSI-Commercial [id number] ANSI-Commercial [id number] ANSI-Commercial [id number] ANSI-Commercial [id number] ANSI-Commercial [id number] ANSI-Commercial [id number] ANSI-Commercial [id number] HMO BLUE [id number] SP [id number] BS [place] PPO 302/307 [id number] SP [id number] [employer] [facility] Health Maintenance Organization (HMO) [id number] Self [place] [id number] SP [id number] MEDICAID [id number] SP [id number] Problems, Conditions, and Diagnoses No Information Surgeries/Procedures Procedure Description Date Indications Data Source(s) RADIOLOGIC EXAM KNEE COMPLETE 4/MORE VIEWS 05/08/2021 12:00:00 AM EDT [facility] ([facility] ) OFFICE OUTPATIENT NEW 60 MINUTES 05/08/2021 12:00:00 A M EDT [facility] ([facility] ) RADIOLOGIC EXAM KNEE COMPLETE 4/MORE VIEWS 05/08/2021 12:00:00 AM EDT [facility] ([facility] ) RADEX ELBOW COMPLETE MINIMUM 3 VIEWS 05/08/2021 12:00: 00 AM EDT [facility] ([facility] ) X-Ray Spine Lumbosacral Complete Inc Bending Views Min Of 6 05/08/2021 12:00:00 AM EDT [facility] ([facility] ) RADEX SPINE CRV COMPL W/OBLQ&FLEX&/XTN STDS 05/08/2021 12:00:00 AM EDT [facility] ([facility] ) Results No Information Social History No Information Vital Signs ID Date Data Source UNK Name Value Range Interpretation Code Description Data Source(s) Body weight 106.00 [lb_av] 106.00 [lb_av] MEDEN T ([facility] ) Body mass index (BMI) [Ratio] 20.7 kg/m2 20.7 k g/m2 [facility] ([facility]) Body height 60 [in_i] 60 [in_i] [facility] ([facility] ) 5'0" Body temperature 97.5 [degF] 97.5 [degF] [facility] ([facility] )
[2021-06-10 13:09] LABS: RSV AMPLIFICATION NEGATIVE (NEGATIVE)
[2021-06-10 13:23] LABS: BASO % 0.4 % (0.0-1.0); EOS % 0.8 % (0.0-3.0); LYMPH % 39.9 % (24.0-44.0); MEAN CORPUSCULAR HEMOGLOBIN 29.7 pg (27.0-33.0); MEAN CORPUSCULAR HGB CONC 32.4 g/dl (32.0-36.5); MEAN CORPUSCULAR VOLUME 91.6 fl (80.0-96.0); MONO # 0.3 10^3/uL (0.0-0.8); MONO % 6.9 % (2.0-8.0); NEUTROPHILS # 2.6 10^3/uL (1.5-8.5); NEUTROPHILS % 51.8 % (36.0-66.0); PLATELET COUNT, AUTOMATED 319 10^3/uL (150-450); RED BLOOD COUNT 4.04 10^6/uL (4.00-5.40)
--- NOTE | 2021-06-10 13:30 | REP ---
INDICATION: chest pain, cough COMPARISON: 01/31/2019 TECHNIQUE: Portable AP view of the chest FINDINGS: The mediastinum and cardiac silhouette are stable and within normal limits for portable technique. The lung crump are clear without acute consolidation, effusion, or pneumothorax. Skeletal structures are intact. IMPRESSION: No acute cardiopulmonary process appreciated. <Electronically signed by Vaughn Marcelino > 06/10/21 [id number]
[2021-06-10 13:48] LABS: CK-MB VALUE MASS < 1.0 NG/ML (<3.6); CPK CREATINE PHOSPHOKINASE 85 U/L (26-192); MB/CK RELATIVE INDEX 1.18 (< OR =4)
[2021-06-10 14:00] LABS: ALBUMIN 3.8 GM/DL (3.2-5.2); ALT/SGPT 18 U/L (12-78); BILIRUBIN,DIRECT < 0.1 MG/DL (0.0-0.2); BILIRUBIN,TOTAL 0.4 MG/DL (0.2-1.0); BLOOD UREA NITROGEN 8 MG/DL (7-18); CALCIUM LEVEL 8.8 MG/DL (8.8-10.2); CARBON DIOXIDE LEVEL 29 MEQ/L (21-32); CHLORIDE LEVEL 108 MEQ/L (98-107); CREATININE FOR GFR 0.63 MG/DL (0.55-1.30); GLOMERULAR FILTRATION RATE > 60.0 (>45); GLUCOSE, FASTING 80 MG/DL (70-100); LIPASE 197 U/L (73-393); POTASSIUM SERUM 4.1 MEQ/L (3.5-5.1); SODIUM LEVEL 142 MEQ/L (136-145); TOTAL PROTEIN 7.6 GM/DL (6.4-8.2)
--- NOTE | 2021-06-10 15:10 | REP ---
INDICATION: ruq pain, epigastric pain COMPARISON: None. TECHNIQUE: Real time olson scale ultrasound examination using curved array transducer. FINDINGS: Liver and pancreas are normal in contour, size, and echogenicity without focal hepatic and pancreatic lesions identified. The gallbladder demonstrates mobile gallstone without wall thickening or pericholecystic fluid. No biliary ductal dilatation is appreciated and the common bile duct measures 3.0 mm diameter. Right kidney is normal in reniform shape without hydronephrosis and measures 9.7 x 5.0 x 3.3 cm. No ascites in the visualized right upper quadrant. IMPRESSION: 1. Cholelithiasis. <Electronically signed by Vaughn Marcelino > 06/10/21 [id number]
[2021-06-10] MEDS ORDERED: AMOX500C PO (16:02)
[2021-06-10 16:23] VITALS: BP 170/90
[2021-06-10] MEDS ORDERED: TESS100C PO (16:40)
--- NOTE | 2021-06-11 13:32 | ECGEPIP ---
[facility] - ED Test Date: 2021-06-10 Pat Name: LIZETT DUPREE Department: Room: - Gender: Female [employer]: ED : 1960 Requested By: Shy Benson PA-C Order Number: [id number] Reading MD: Jaspreet Coleman Measurements Intervals [place] Rate: 62 P: 0 AR: 174 QRS: 35 QRSD: 72 T: 31 QT: 460 QTc: 466 Interpretive Statements Normal sinus rhythm with sinus arrhythmia Electronically Signed on 06-11-2021 13:32:15 EST by Jaspreet Coleman
== END 2021-06-10 17:03 | disposition home or self-care (01) ==
LOC: M ED 08:57
DX: J06.9 Acute upper respiratory infection, unspecified (principal); I10 Essential (primary) hypertension; R10.9 Unspecified abdominal pain; K80.20 Calculus of gallbladder without cholecystitis without obstruction; R00.2 Palpitations

== ENCOUNTER → 2021-07-02 | Outpatient (CLI) | payer OTHER ==
[~2021-07-02] MED LIST changes: +AMOX500C PO; +TESS100C PO
--- NOTE | 2021-07-03 11:55 | REPVR ---
PROCEDURE INFORMATION: Exam: MR Cervical Spine Without Contrast Exam date and time: 07/02/2021 11:54 AM Age: 60 years old Clinical indication: Neck pain; Additional info: Other cervical disc degeneration, unsp cervical re TECHNIQUE: Imaging protocol: Multiplanar magnetic resonance images of the cervical spine without contrast. COMPARISON: CT ANGIO CHEST 03/04/2016 10:46 AM FINDINGS: Vertebrae: Partial straightening of cervical lordosis may be positional or associated with muscular spasm. Vertebral body heights are maintained. No acute fracture. There are several T1 hyperintense lesion with small hemangiomas. There are mild endplate degenerative marrow changes. No suspicious bone marrow lesions. Spinal shows normal signal. Spinal cord: Normal signal. No cord compression. C2-C3: Unremarkable. C3-C4: Minimal disc osteophyte complex and mild uncinate osteophytes without spinal stenosis, cord, or neural narrowing. C4-C5: There is posterior disc osteophyte complex, partially spinal fluid with mild spinal stenosis and no evidence of cord impingement. Uncinate and facet osteophytes probable moderate bilateral neural foraminal narrowing. C5-C6: There is posterior disc osteophyte complex, partially spinal fluid with mild spinal stenosis and no evidence of cord impingement. Uncinate and facet osteophytes probable moderate bilateral neural foraminal narrowing. C6-C7: Minimal disc osteophyte complex. Mild uncinate osteophytes. No significant neural foraminal narrowing, spinal stenosis, or cord impingement. Small perineural cysts noted. C7-T1: Small perineural cysts noted otherwise unremarkable. Soft tissues: Unremarkable. Vertebral arteries: Expected flow voids in the vertebral arteries. IMPRESSION: No evidence cord impingement. Mild spinal stenosis and moderate neural foraminal narrowing at C4-C5 and C5-C6. Electronically signed by: Willow Solorzano On 07/03/2021 11:55:25 AM
== END ==
LOC: M PLAIMG 11:07
PROVIDERS: ATTEND Physician Assistant
DX: M50.30 Other cervical disc degeneration, unspecified cervical region (principal)

== ENCOUNTER → 2022-01-19 | Outpatient (CLI) | payer OTHER | LOC: M RAD 15:01 | PROVIDERS: ATTEND Nurse Practitioner Family | DX: M54.2 Cervicalgia (principal) ==

== ENCOUNTER → 2022-04-23 | Outpatient (CLI) | payer OTHER | LOC: M RAD 11:40 | PROVIDERS: ATTEND Nurse Practitioner Family | DX: M79.662 Pain in left lower leg (principal); M79.661 Pain in right lower leg ==

== ENCOUNTER → 2023-03-15 | Outpatient (CLI) | payer OTHER | LOC: M WHC 09:23 | PROVIDERS: ATTEND Obstetrics & Gynecology | DX: Z12.31 Encounter for screening mammogram for malignant neoplasm of breast (principal); M81.0 Age-related osteoporosis without current pathological fracture ==

== ENCOUNTER 2023-09-10 09:51 | Emergency (ER) | payer OTHER ==
[~2023-09-10] VITALS: Ht 149.9 cm; Wt 50.8 kg
[2023-09-10] MEDS: NS 1,000 ML IV ONE (12:20)
[2023-09-10] MEDS: PANTOPRAZOLE 40MG VIAL IV ONE (13:52)
[2023-09-10 14:08] LABS: BASO % 0.1 % (0.0-1.0); EOS # 0.1 10^3/uL (0.0-0.5); EOS % 0.7 % (0.0-3.0); HEMATOCRIT 35.7 % (36.0-47.0); HEMOGLOBIN 11.7 g/dl (12.0-15.5); LYMPH # 2.5 10^3/uL (1.5-5.0); LYMPH % 26.1 % (24.0-44.0); MEAN CORPUSCULAR HEMOGLOBIN 30.2 pg (27.0-33.0); MEAN CORPUSCULAR HGB CONC 32.8 g/dl (32.0-36.5); MEAN CORPUSCULAR VOLUME 92.2 fl (80.0-96.0); MONO # 0.5 10^3/uL (0.0-0.8); NEUTROPHILS # 6.4 10^3/uL (1.5-8.5); NEUTROPHILS % 67.6 % (36.0-66.0); PLATELET COUNT, AUTOMATED 316 10^3/uL (150-450); RED BLOOD COUNT 3.87 10^6/uL (4.00-5.40); WHITE BLOOD COUNT 9.4 10^3/uL (4.0-10.0)
[2023-09-10 14:21] LABS: INR 0.99; PARTIAL THROMBOPLASTIN TIME 31.9 SECONDS (24.8-34.2); PROTHROMBIN TIME 12.8 SECONDS (12.5-14.5)
[2023-09-10 14:35] LABS: ALBUMIN 3.9 G/DL (3.2-5.2); ALKALINE PHOSPHATASE 125 U/L (46-116); ALT/SGPT 64 U/L (7.0-40); AST/SGOT 67 U/L (<34); BILIRUBIN,DIRECT < 0.1 MG/DL (<0.4); BILIRUBIN,TOTAL 0.3 MG/DL (0.3-1.2); BLOOD UREA NITROGEN 12 MG/DL (9-23); CALCIUM LEVEL 8.3 MG/DL (8.3-10.6); CARBON DIOXIDE LEVEL 28 MMOL/L (20-31); CHLORIDE LEVEL 105 MMOL/L (98-107); CK-MB VALUE MASS < 1.0 NG/ML (<3.6); CPK CREATINE PHOSPHOKINASE 115 U/L (34-145); CREATININE FOR GFR 0.46 MG/DL (0.55-1.30); GLOMERULAR FILTRATION RATE > 60.0 (>45); GLUCOSE, FASTING 72 MG/DL (74-106); LIPASE 51 U/L (12-53); MB/CK RELATIVE INDEX 0.86 (< OR =4); POTASSIUM SERUM 5.6 MMOL/L (3.5-5.1); SODIUM LEVEL 138 MMOL/L (136-145); TOTAL PROTEIN 7.6 G/DL (5.7-8.2)
[2023-09-10 14:40] LABS: RSV AMPLIFICATION NEGATIVE (NEGATIVE)
[2023-09-10] MEDS ORDERED: ISOVUE-370 76% 100ML VIAL As Ordered ONE (15:04)
[2023-09-10] MEDS ORDERED: CIPR-249 PO (17:29)
[2023-09-10] MEDS ORDERED: OMEP40CA4 PO (17:29)
[2023-09-10 17:53] VITALS: BP 160/78; TEMP 97.8; O2SAT 98
[2023-09-10 18:24] LABS: Trichomonas vaginalis (AMP) NOT DETECTED (NEGATIVE)
[2023-09-10 18:48] LABS: GC DNA AMPLIFICATION NEGATIVE (NEGATIVE)
== END 2023-09-10 17:55 | disposition home or self-care (01) ==
LOC: M ED 09:51
DX: N39.0 Urinary tract infection, site not specified (principal); K21.9 Gastro-esophageal reflux disease without esophagitis; D25.9 Leiomyoma of uterus, unspecified; K80.80 Other cholelithiasis without obstruction; Z79.899 Other long term (current) drug therapy; Z79.2 Long term (current) use of antibiotics
CPT/HCPCS: 36415; 74177; 80048; 80076; 81001; 82550; 82553; 83605; 83690; 84132; 85025; 85610; 85730; 87040; 87088; 87186; 87210; 87631; 87661; 87810; 87850; 93005; 96374; 99284; C9113; Q9967

== ENCOUNTER → 2023-09-27 | Outpatient (REF) | payer OTHER ==
[~2023-09-27] MED LIST changes: +CIPR-249 PO; +OMEP40CA4 PO
== END ==
LOC: M SFHCWAGY 13:12
PROVIDERS: ATTEND Specialist
DX: Z01.419 Encounter for gynecological examination (general) (routine) without abnormal findings (principal)

== ENCOUNTER → 2024-01-18 | Outpatient (REF) | payer OTHER, MEDICAID ==
[2024-01-18 14:33] LABS: BASO % 0.2 % (0.0-1.0); EOS # 0.1 10^3/uL (0.0-0.5); EOS % 1.3 % (0.0-3.0); HEMATOCRIT 37.9 % (36.0-47.0); HEMOGLOBIN 11.9 g/dl (12.0-15.5); LYMPH # 2.2 10^3/uL (1.5-5.0); LYMPH % 42.1 % (24.0-44.0); MEAN CORPUSCULAR HGB CONC 31.4 g/dl (32.0-36.5); MEAN CORPUSCULAR VOLUME 92.4 fl (80.0-96.0); MONO # 0.3 10^3/uL (0.0-0.8); MONO % 6.2 % (2.0-8.0); NEUTROPHILS # 2.6 10^3/uL (1.5-8.5); PLATELET COUNT, AUTOMATED 297 10^3/uL (150-450); WHITE BLOOD COUNT 5.2 10^3/uL (4.0-10.0)
[2024-01-18 14:49] LABS: ALBUMIN 4.2 G/DL (3.2-5.2); ALKALINE PHOSPHATASE 83 U/L (46-116); ALT/SGPT 14 U/L (7.0-40); AST/SGOT 14 U/L (<34); BILIRUBIN,TOTAL 0.5 MG/DL (0.3-1.2); BLOOD UREA NITROGEN 10 MG/DL (9-23); CALCIUM LEVEL 9.2 MG/DL (8.3-10.6); CARBON DIOXIDE LEVEL 30 MMOL/L (20-31); CHLORIDE LEVEL 106 MMOL/L (98-107); CHOLESTEROL LEVEL 205 MG/DL (<200); CHOLESTEROL RISK RATIO 4.58 (<5); CREATININE FOR GFR 0.69 MG/DL (0.55-1.30); GLOMERULAR FILTRATION RATE > 60.0 (>45); GLUCOSE, FASTING 76 MG/DL (74-106); HDL CHOLESTEROL 44.7 MG/DL (>40); LDL CHOLESTEROL 134.1 MG/DL (<100); MAGNESIUM LEVEL 2.1 MG/DL (1.8-2.4); NON-HDL-C 160.3 MG/DL; POTASSIUM SERUM 3.8 MMOL/L (3.5-5.1); SODIUM LEVEL 141 MMOL/L (136-145); TOTAL 25(OH) VITAMIN D 37.1 NG/ML (20.0-100.0); TOTAL PROTEIN 7.3 G/DL (5.7-8.2); TRIGLYCERIDES LEVEL 131 MG/DL (<150)
[2024-01-18 15:10] LABS: HEMOGLOBIN A1c 5.6 % (4.0-6.0)
== END ==
LOC: M LAB REF 13:21
PROVIDERS: ATTEND Nurse Practitioner Family
DX: K21.9 Gastro-esophageal reflux disease without esophagitis (principal); Z13.1 Encounter for screening for diabetes mellitus; Z13.220 Encounter for screening for lipoid disorders; Z13.29 Encounter for screening for other suspected endocrine disorder; E55.9 Vitamin D deficiency, unspecified

== ENCOUNTER → 2024-03-17 | Outpatient (CLI) | payer OTHER | LOC: M WHC 09:57 | PROVIDERS: ATTEND Nurse Practitioner Family | DX: Z12.31 Encounter for screening mammogram for malignant neoplasm of breast (principal) ==

== ENCOUNTER → 2024-03-21 | Outpatient (REF) | payer OTHER | LOC: M LAB REF 12:25 | PROVIDERS: ATTEND Obstetrics & Gynecology | DX: R30.0 Dysuria (principal) ==

== ENCOUNTER → 2024-05-05 | Outpatient (REF) | payer OTHER, MEDICAID ==
[2024-05-05 13:42] LABS: CHOLESTEROL RISK RATIO 4.04 (<5); HDL CHOLESTEROL 52.1 MG/DL (>40); LDL CHOLESTEROL 96.5 MG/DL (<100); NON-HDL-C 158.9 MG/DL
== END ==
LOC: M LAB REF 13:00
PROVIDERS: ATTEND Nurse Practitioner Family
DX: R79.89 Other specified abnormal findings of blood chemistry (principal)

== ENCOUNTER → 2024-10-11 | Outpatient (REF) | payer MEDICAID, OTHER ==
[2024-10-14 16:03] LABS: HPV APTIMA Not Detected (Not Detected)
== END ==
LOC: M SFHCWAGY 09:54
PROVIDERS: ATTEND Specialist
DX: Z12.4 Encounter for screening for malignant neoplasm of cervix (principal); R87.610 Atypical squamous cells of undetermined significance on cytologic smear of cervix (ASC-US)